=== PATIENT | male | born 1950 | race African-American/Black ===

== ENCOUNTER 2022-03-23 19:29 | Observation (INO) | payer OTHER ==
[2022-03-23 21:26] LABS: BASO % 0.2 % (0-2.0); HEMATOCRIT 43.4 % (35.4-49); HEMOGLOBIN 14.8 GM/dL (11.7-16.9); LYMPH % 2.8 % (8-40); MCH 28.2 pg (25.7-33.7); MCHC 34.2 g/dl (32.0-35.9); MEAN CELL VOLUME 82.5 fl (80-96); MEAN PLT VOLUME 11.9 fl (7.5-11.1); MONO % 3.1 % (3.8-10.2); NEUT % 93.9 % (42.8-82.8); PLATELET COUNT 148 10^3/uL (134-434); RBC 5.26 M/mm3 (4.00-5.60); RDW 14.1 % (11.9-15.9); WHITE BLOOD COUNT 16.9 K/mm3 (4.0-10.0)
[2022-03-23 21:55] LABS: ANISOCYTOSIS 2+; MACROCYTOSIS 0
[2022-03-23 22:04] LABS: ALBUMIN 3.3 g/dl (3.4-5.0); CALCIUM 9.2 mg/dL (8.5-10.1)
[2022-03-23 22:05] LABS: BLOOD UREA NITROGEN 16.3 mg/dL (7-18)
[2022-03-23 22:08] LABS: CREATININE 1.3 mg/dL (0.55-1.3)
[2022-03-23] MEDS ORDERED: AZITHROMYCIN IVPB 500 MG in DEXTROSE 5%-WATER - 250 ML IVPB ONE (22:21)
[2022-03-23] MEDS ORDERED: CEFTRIAXONE 1,000 MG in DEXTROSE 5%-WATER - 50 ML IVPB ONE (22:21)
[2022-03-23 23:21] LABS: BILIRUBIN,TOTAL 1.2 mg/dL (0.2-1)
[2022-03-24] MEDS ORDERED: CEFTRIAXONE 1 GM/50 ML BAG ONE ×2 (00:35→09:22)
[2022-03-24] MEDS ORDERED: AZITHROMYCIN IVPB 500 MG/250 ML BAG IVPB ONE ×2 (00:35→09:22)
[2022-03-24 07:38] LABS: BASO % 0.2 % (0-2.0); EOS % 0.4 % (0-4.5); HEMATOCRIT 43.4 % (35.4-49); HEMOGLOBIN 15.2 GM/dL (11.7-16.9); LYMPH % 7.5 % (8-40); MCH 28.9 pg (25.7-33.7); MCHC 34.9 g/dl (32.0-35.9); MEAN CELL VOLUME 82.7 fl (80-96); MEAN PLT VOLUME 11.5 fl (7.5-11.1); MONO % 5.2 % (3.8-10.2); NEUT % 86.7 % (42.8-82.8); PLATELET COUNT 132 10^3/uL (134-434); RBC 5.25 M/mm3 (4.00-5.60); RDW 13.9 % (11.9-15.9); WHITE BLOOD COUNT 13.3 K/mm3 (4.0-10.0)
[2022-03-24 07:57] LABS: CHLORIDE 101 mmol/L (98-107); SODIUM 142 mmol/L (136-145)
[2022-03-24 08:00] LABS: CALCIUM 9.4 mg/dL (8.5-10.1)
[2022-03-24 08:01] LABS: ALBUMIN 3.5 g/dl (3.4-5.0); BLOOD UREA NITROGEN 14.3 mg/dL (7-18); CO2 31 mmol/L (21-32); GLUCOSE,RANDOM 110 mg/dL (74-106)
[2022-03-24 08:04] LABS: CREATININE 1.1 mg/dL (0.55-1.3); PHOSPHOROUS 2.7 mg/dL (2.5-4.9); SGOT/AST 24 U/L (15-37); SGPT/ALT 40 U/L (13-61)
[2022-03-24 08:06] LABS: BILIRUBIN,TOTAL 1.1 mg/dL (0.2-1); TOT PROT 7.4 g/dl (6.4-8.2)
[2022-03-24 08:07] LABS: ALK PHOS 66 U/L (45-117)
[2022-03-24 08:28] LABS: ANION GAP 10 MMOL/L (8-16)
[2022-03-24] MEDS ORDERED: ATENOLOL 50 MG TABLET (FP) ONE (09:21)
[2022-03-24] MEDS ORDERED: LOSARTAN POTASSIUM 50 MG TABLET ONE (09:22)
[2022-03-24] MEDS ORDERED: ENOXAPARIN NA (PORCINE) 40 MG/0.4 ML DISP.SYRIN SQ ONE (09:22)
[2022-03-24] MEDS: CHLORTHALIDONE 25 MG TABLET PO SCH (09:57)
[2022-03-24] MEDS: LOSARTAN POTASSIUM 50 MG TABLET PO SCH (09:57)
[2022-03-24] MEDS: ENOXAPARIN NA (PORCINE) 40 MG/0.4 ML DISP.SYRIN SQ SCH (09:57)
[2022-03-24] MEDS: AZITHROMYCIN IVPB 500 MG/250 ML BAG IVPB SCH (09:58)
[2022-03-24] MEDS: CEFTRIAXONE 1 GM in DEXTROSE 5%-WATER - 50 ML IVPB SCH (09:58)
[2022-03-24] MEDS: ATENOLOL 50 MG TABLET (FP) PO SCH (09:58)
[2022-03-24] MEDS ORDERED: PATIENT'S OWN MEDICATION (NON-FORMULARY) (Atenolol/Chlorthalidone [Atenolol-Chlorthalidone PO SCH (10:00)
[2022-03-24 10:59] LABS: EPI CELLS 26 /uL (0-25.1); HYALINE CASTS 4 /uL (0-3.1); PH,URINE 5.5 (5.0-8.0); URINE APPEARANCE CLEAR; URINE BACTERIA 6 /uL (0-1359); URINE BILIRUBIN NEGATIVE (NEGATIVE); URINE COLOR YELLOW; URINE GLUCOSE (UA) NEGATIVE (NEGATIVE); URINE KETONE NEGATIVE (NEGATIVE); URINE LEUK ESTERASE 1+ (NEGATIVE); URINE NITRITE NEGATIVE (NEGATIVE); URINE PROTEIN TRACE (NEGATIVE); URINE RBC 15 /uL (0-23.9); URINE UROBILINOGEN 0.2 mg/dL (0.2-1.0); URINE WBC 498 /uL (0-25.8)
[2022-03-24] MEDS: POTASSIUM CHLORIDE TABS 20 MEQ TABLET.ER (FP) PO SCH ×2 (12:10→13:02)
[2022-03-24] MEDS ORDERED: POTASSIUM CHLORIDE ORAL LIQUID 20 MEQ/15 ML ONE (12:42)
[2022-03-25] MEDS ORDERED: LOSARTAN POTASSIUM 50 MG TABLET ONE (09:13)
[2022-03-25] MEDS ORDERED: ATENOLOL 50 MG TABLET (FP) ONE (09:13)
[2022-03-25] MEDS ORDERED: AZITHROMYCIN IVPB 500 MG/250 ML BAG IVPB ONE ×2 (09:14→09:37)
[2022-03-25] MEDS ORDERED: CEFTRIAXONE 1 GM/50 ML BAG ONE (09:14)
[2022-03-25] MEDS ORDERED: ENOXAPARIN NA (PORCINE) 40 MG/0.4 ML DISP.SYRIN SQ ONE (09:14)
[2022-03-25] MEDS: ENOXAPARIN NA (PORCINE) 40 MG/0.4 ML DISP.SYRIN SQ SCH (09:58)
[2022-03-25] MEDS: ATENOLOL 50 MG TABLET (FP) PO SCH (09:58)
[2022-03-25] MEDS: CEFTRIAXONE 1 GM in DEXTROSE 5%-WATER - 50 ML IVPB SCH (09:58)
[2022-03-25] MEDS: CHLORTHALIDONE 25 MG TABLET PO SCH (09:58)
[2022-03-25] MEDS: LOSARTAN POTASSIUM 50 MG TABLET PO SCH (09:58)
[2022-03-25] MEDS: AZITHROMYCIN IVPB 500 MG/250 ML BAG IVPB SCH (09:58)
[2022-03-25 13:31] LABS: BASO % 0.5 % (0-2.0); EOS % 0.9 % (0-4.5); HEMATOCRIT 43.3 % (35.4-49); HEMOGLOBIN 14.8 GM/dL (11.7-16.9); LYMPH % 19.6 % (8-40); MCH 28.5 pg (25.7-33.7); MCHC 34.2 g/dl (32.0-35.9); MEAN CELL VOLUME 83.2 fl (80-96); MEAN PLT VOLUME 11.7 fl (7.5-11.1); MONO % 9.7 % (3.8-10.2); NEUT % 69.3 % (42.8-82.8); PLATELET COUNT 132 10^3/uL (134-434); RBC 5.21 M/mm3 (4.00-5.60); RDW 13.8 % (11.9-15.9); WHITE BLOOD COUNT 9.4 K/mm3 (4.0-10.0)
[2022-03-25 13:45] LABS: BLOOD UREA NITROGEN 17.8 mg/dL (7-18); CALCIUM 9.4 mg/dL (8.5-10.1)
[2022-03-25 13:46] LABS: ALBUMIN 3.2 g/dl (3.4-5.0)
[2022-03-25 13:50] LABS: BILIRUBIN,TOTAL 0.6 mg/dL (0.2-1); TOT PROT 7.1 g/dl (6.4-8.2)
[2022-03-25 13:54] LABS: CREATININE 1.2 mg/dL (0.55-1.3)
[2022-03-25] MEDS ORDERED: POTASSIUM CHLORIDE ORAL LIQUID 20 MEQ/15 ML PO ONE (14:16)
[2022-03-25 14:50] VITALS: BP 155/98; PULSE 79; RESP 18; TEMP 97.9; BMI 16.9
== END 2022-03-25 17:26 | disposition home or self-care (01) ==
LOC: JER 19:29 → JERBED 22:30 → J4W 03-25 10:18
PROVIDERS: ADMIT Internal Medicine; ATTEND Internal Medicine
PROC: 3E03329 Introduction of Other Anti-infective into Peripheral Vein, Percutaneous Approach (ICD-10-PCS; principal; 2022-03-23)
PROC: 3E023GC Introduction of Other Therapeutic Substance into Muscle, Percutaneous Approach (ICD-10-PCS; 2022-03-23)
DX: J18.9 Pneumonia, unspecified organism (principal); R55 Syncope and collapse; I47.1 Supraventricular tachycardia; D72.829 Elevated white blood cell count, unspecified; I10 Essential (primary) hypertension; R11.2 Nausea with vomiting, unspecified
CPT/HCPCS: 0241U-QW; 36415; 71046-TC-FY; 80053; 81003; 83735; 84100; 84484; 85025; 87086; 93005; 93010; 96365; 96366; 96368; 96372; 99285-25; G0378

== ENCOUNTER 2024-08-22 03:49 | Emergency (ER) | payer OTHER ==
[2024-08-22 03:57] VITALS: TEMP 98; BMI 40.1
[2024-08-22 04:09] VITALS: BP 180/90
[2024-08-22] MEDS ORDERED: ACETAMINOPHEN 325 MG TABLET (FP) ONE (04:21)
[2024-08-22] MEDS: ACETAMINOPHEN 500 MG TABLET (FP) PO ONE (04:23)
[2024-08-22 04:26] LABS: EPI CELLS 2 /uL (0-25.1); HYALINE CASTS 0 /uL (0-3.1); URINE APPEARANCE CLEAR; URINE BACTERIA 14 /uL (0-1359); URINE BILIRUBIN NEGATIVE (NEGATIVE); URINE COLOR YELLOW; URINE GLUCOSE (UA) TRACE (NEGATIVE); URINE KETONE NEGATIVE (NEGATIVE); URINE LEUK ESTERASE NEGATIVE (NEGATIVE); URINE NITRITE NEGATIVE (NEGATIVE); URINE PROTEIN TRACE (NEGATIVE); URINE RBC 20 /uL (0-23.9); URINE UROBILINOGEN 0.2 mg/dL (0.2-1.0); URINE WBC 3 /uL (0-25.8)
[2024-08-22 04:40] LABS: POTASSIUM 3.3 mmol/L (3.5-5.1)
[2024-08-22 04:42] LABS: CALCIUM 9.7 mg/dL (8.5-10.1)
[2024-08-22 04:43] LABS: ALBUMIN 4.1 g/dl (3.4-5.0); BLOOD UREA NITROGEN 16.4 mg/dL (7-18)
[2024-08-22 04:46] LABS: CREATININE 1.6 mg/dL (0.55-1.3)
[2024-08-22 04:47] LABS: BILIRUBIN,TOTAL 0.8 mg/dL (0.2-1)
[2024-08-22 04:48] LABS: TOT PROT 7.8 g/dl (6.4-8.2)
[2024-08-22 05:09] VITALS: PULSE 93
[2024-08-22 05:10] VITALS: RESP 18
== END 2024-08-22 05:11 | disposition home or self-care (01) ==
LOC: JER 03:49
PROC: 0T9B70Z Drainage of Bladder with Drainage Device, Via Natural or Artificial Opening (ICD-10-PCS; principal; 2024-08-22)
DX: R33.9 Retention of urine, unspecified (principal); R00.0 Tachycardia, unspecified; I10 Essential (primary) hypertension
CPT/HCPCS: 36415; 80053; 81003; 87086; 99283-25